=== PATIENT | female | born 1995 | race Two or more races ===

== ENCOUNTER 2018-07-26 23:30 | Observation (INO) | payer OTHER ==
[~2018-07-26] VITALS: Ht 162.6 cm; Wt 67.0 kg
[2018-07-27 02:38] LABS: CHLORIDE 106 mEq/L (98-107)
[2018-07-27 02:39] LABS: BASOPHILS % 0.4 % (0.0-2.0); EOSINOPHILS % 0.7 % (0.0-5.0); HEMATOCRIT. 36.8 % (36.0-48.0); HEMOGLOBIN. 12.4 g/dL (12.0-16.0); MEAN CORPUSCULAR HEMOGLOBIN 30.5 pg (28.0-32.0); MEAN CORPUSCULAR VOLUME 90.6 fL (81.0-99.0); MEAN PLATELET VOLUME 7.8 fl (7.4-10.4); MONOCYTES % 6.6 % (2.0-8.0); NEUTROPHILS % 72.3 % (40.0-76.0); PLATELET 306 x1000/uL (130-400); RED BLOOD CELL COUNT 4.06 mill/uL (4.2-5.4); RED CELL DISTRIBUTION WIDTH 13.2 % (11.6-14.6)
[2018-07-27 03:02] LABS: B-HCG QUANTITATIVE 1062 mIU/mL (<3)
[2018-07-27 03:59] LABS: CLARITY URINE CLEAR (CLEAR); COLOR URINE YELLOW (YELLOW); KETONES URINE 1+ (NEGATIVE); LEUKOCYTE ESTERASE URINE NEGATIVE (NEGATIVE); NITRITE URINE NEGATIVE (NEGATIVE); OCCULT BLOOD URINE NEGATIVE (NEGATIVE); PROTEIN URINE NEGATIVE (NEGATIVE); SPECIFIC GRAVITY URINE 1.009 (1.005-1.030); UROBILINOGEN URINE 0.2 E.U./dL (0.2-1.0)
[2018-07-27] MEDS: LACTATED RINGERS 1,000 ML IV SCH (05:30)
[2018-07-27] MEDS ORDERED: AMPICILLIN 2,000 MG in SODIUM CHLORIDE 0.9% 100 ML IV SCH (06:15)
[2018-07-27] MEDS ORDERED: MAGNESIUM 4 G PREMIX 100 ML IV ONE (06:15)
[2018-07-27] MEDS: MAGNESIUM 20 G PREMIX (L & D) 500 ML IV SCH (07:19)
[2018-07-27] MEDS: AMPICILLIN 2,000 MG in SODIUM CHLORIDE 0.9% 50 ML IV SCH ×3 (07:20→21:37)
[2018-07-27] MEDS: BETAMETHASONE ACET/BETAMET 30 MG/5 ML VIAL IM SCH (07:35)
[2018-07-27 12:48] LABS: HEPATITIS B SURFACE ANTIGEN NEGATIVE
[2018-07-28] MEDS: AMPICILLIN 2,000 MG in SODIUM CHLORIDE 0.9% 50 ML IV SCH ×3 (06:19→18:38)
[2018-07-28] MEDS: LACTATED RINGERS 1,000 ML IV SCH (06:22)
[2018-07-28] MEDS: BETAMETHASONE ACET/BETAMET 30 MG/5 ML VIAL IM SCH (07:46)
[2018-07-28 09:30] VITALS: BP 119/72
[2018-07-28] MEDS: MAGNESIUM 20 G PREMIX (L & D) 500 ML IV SCH (09:30)
== END 2018-07-29 02:30 | disposition still patient (30) ==
LOC: ER 23:51 → L&D 23:55 → 8EST NSY 07-27 05:36 → L&D 07-27 05:38 → 8EST 07-27 14:29 → 8 EST A/PP 07-28 06:14
PROVIDERS: ADMIT Obstetrics & Gynecology; ATTEND Obstetrics & Gynecology
DX: O46.93 Antepartum hemorrhage, unspecified, third trimester (principal); O60.03 Preterm labor without delivery, third trimester; Z3A.34 34 weeks gestation of pregnancy
CPT/HCPCS: 36415; 76805; 76818; 80053; 81003; 82962; 83735; 84702; 85025; 86762; 86850; 86900; 86901; 87340; 96365; 96366; 96368; 96372; G0378; J0290; J0702; J3475; J7050; J7120; A4315

== ENCOUNTER 2018-08-02 23:50 | Observation (INO) | payer OTHER ==
[~2018-08-02] VITALS: Ht 165.1 cm; Wt 67.1 kg
[2018-08-03] MEDS ORDERED: PNV1TABL50 MT (00:31)
[2018-08-03] MEDS ORDERED: ACETAMINOPHEN 500MG TABLET PO ONE (00:45)
[2018-08-03] MEDS ORDERED: DEXT 5%/0.9% NACL 1,000 ML IV SCH (00:45)
[2018-08-03] MEDS ORDERED: CEFAZOLIN 2,000 MG in DEXT 5% WATER 100 ML IV SCH (01:00)
[2018-08-03 01:45] LABS: CLARITY URINE CLOUDY (CLEAR); COLOR URINE YELLOW (YELLOW); KETONES URINE NEGATIVE (NEGATIVE); LEUKOCYTE ESTERASE URINE 3+ (NEGATIVE); NITRITE URINE NEGATIVE (NEGATIVE); OCCULT BLOOD URINE 1+ (NEGATIVE); PROTEIN URINE 1+ (NEGATIVE); SPECIFIC GRAVITY URINE 1.011 (1.005-1.030)
== END 2018-08-03 04:31 | disposition home or self-care (01) ==
LOC: 8 EST LDRP 23:50
PROVIDERS: ADMIT Obstetrics & Gynecology; ATTEND Obstetrics & Gynecology
DX: O26.893 Other specified pregnancy related conditions, third trimester (principal); R10.30 Lower abdominal pain, unspecified; Z3A.35 35 weeks gestation of pregnancy
CPT/HCPCS: 81003; 87086; 87186; 96365; 99281; G0378; J0690; J7060; 87077; 96360; 96361

== ENCOUNTER 2018-08-21 22:15 | Observation (INO) | payer OTHER ==
[~2018-08-21 22:15] MED LIST: PNV1TABL50 MT
== END 2018-08-21 23:57 | disposition home or self-care (01) ==
LOC: 8 EST LDRP 22:15
PROVIDERS: ADMIT Obstetrics & Gynecology; ATTEND Obstetrics & Gynecology
DX: O62.9 Abnormality of forces of labor, unspecified (principal); O26.893 Other specified pregnancy related conditions, third trimester; R51 Headache; M54.5 Low back pain; R68.83 Chills (without fever); Z3A.38 38 weeks gestation of pregnancy
CPT/HCPCS: 99281; G0378

== ENCOUNTER 2019-08-05 15:54 | Emergency (ER) | payer OTHER | END 2019-08-05 17:09 | disposition left against medical advice (07) | LOC: ER 15:54 | DX: Z53.21 Procedure and treatment not carried out due to patient leaving prior to being seen by health care provider (principal) ==